=== PATIENT | male | born 1940 | race American Indian/Alaskan Native ===

== ENCOUNTER 2018-07-24 12:32 | Emergency (ER) | payer MEDICARE ==
[2018-07-24 12:50] VITALS: BMI 25.1
[2018-07-24 12:52] VITALS: RESP 18; O2SAT 100
[2018-07-24] MEDS ORDERED: Silver Sulfadiazine 1% Cream (20 gm) TOP STA (13:21)
[2018-07-24] MEDS ORDERED: Tetanus/Diphtheria Toxoids 0.5 ml Syringe IM ONE ×2 (13:21→13:55)
[2018-07-24] MEDS ORDERED: Silver Sulfadiazine 1% Cream (20 gm) ONE (13:54)
[2018-07-24 14:09] VITALS: BP 135/73; PULSE 59; TEMP 97.8
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
== END 2018-07-24 14:09 | disposition home or self-care (01) ==
LOC: C.ER 12:32
DX: T24.201A Burn of second degree of unspecified site of right lower limb, except ankle and foot, initial encounter (principal); W86.0XXA Exposure to domestic wiring and appliances, initial encounter; Y92.89 Other specified places as the place of occurrence of the external cause; Z23 Encounter for immunization

== ENCOUNTER 2018-08-28 09:43 | Outpatient (CLI) | payer MEDICARE | END 2018-08-28 09:44 | disposition home or self-care (01) | LOC: C.VASC 09:43 ==

== ENCOUNTER 2018-10-30 13:18 | Outpatient (CLI) | payer MEDICARE | END 2018-10-30 13:19 | disposition home or self-care (01) | LOC: C.MRIC 13:18 | DX: G54.4 Lumbosacral root disorders, not elsewhere classified (principal); G61.1 Serum neuropathy; Z01.812 Encounter for preprocedural laboratory examination; E07.9 Disorder of thyroid, unspecified; Z13.1 Encounter for screening for diabetes mellitus; R70.0 Elevated erythrocyte sedimentation rate; M06.9 Rheumatoid arthritis, unspecified; A69.20 Lyme disease, unspecified; E75.6 Lipid storage disorder, unspecified; E88.9 Metabolic disorder, unspecified; E11.40 Type 2 diabetes mellitus with diabetic neuropathy, unspecified ==